=== PATIENT | male | born 1960 | race Caucasian/White ===

== ENCOUNTER 2018-05-01 21:37 | Emergency (ER) ==
[2018-05-01 21:44] VITALS: BP 144/95; TEMP 98.6; BMI 28.2
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
== END 2018-05-01 22:40 | disposition home or self-care (01) ==
LOC: ED 21:37
DX: S01.112A Laceration without foreign body of left eyelid and periocular area, initial encounter (principal); S09.90XA Unspecified injury of head, initial encounter; Y04.8XXA Assault by other bodily force, initial encounter; S09.91XA Unspecified injury of ear, initial encounter
CPT/HCPCS: 99283